=== PATIENT | male | born 1990 | race Caucasian/White ===

== ENCOUNTER 2017-04-09 13:44 | Emergency (ER) | payer OTHER ==
[~2017-04-09] VITALS: Ht 182.9 cm; Wt 73.8 kg
[2017-04-09 14:09] VITALS: BP 142/81
[2017-04-09] MEDS ORDERED: KEFLEX500 MG PO (15:42)
== END 2017-04-09 16:23 | disposition home or self-care (01) ==
LOC: EME 13:44
DX: F14.90 Cocaine use, unspecified, uncomplicated (principal); F11.90 Opioid use, unspecified, uncomplicated; M79.89 Other specified soft tissue disorders; L53.9 Erythematous condition, unspecified; Z88.0 Allergy status to penicillin; F17.200 Nicotine dependence, unspecified, uncomplicated
CPT/HCPCS: 99281; 99283